=== PATIENT | male | born 1950 | race Caucasian/White ===

== ENCOUNTER 2016-10-21 17:58 | Emergency (ER) | payer MEDICARE ==
[~2016-10-21 17:58] MED LIST: PREVACID PO; PRILOSEC PO; VICODIN 5/500 T1 TAB PO
== END 2016-10-21 20:18 | disposition expired ==
LOC: SED 17:58
DX: J96.90 Respiratory failure, unspecified, unspecified whether with hypoxia or hypercapnia (principal)
CPT/HCPCS: 99285